=== PATIENT | female | born 1990 | race Caucasian/White ===

== ENCOUNTER → 2016-06-16 | Outpatient (CLI) | payer OTHER ==
[~2016-06-16] MED LIST: IBUP-232 PO
== END ==
LOC: HPND 08:00
PROVIDERS: ATTEND Obstetrics & Gynecology
DX: O99.212 Obesity complicating pregnancy, second trimester (principal); E66.01 Morbid (severe) obesity due to excess calories; Z68.41 Body mass index [BMI] 40.0-44.9, adult; O99.282 Endocrine, nutritional and metabolic diseases complicating pregnancy, second trimester; O99.512 Diseases of the respiratory system complicating pregnancy, second trimester; J45.20 Mild intermittent asthma, uncomplicated; O99.342 Other mental disorders complicating pregnancy, second trimester; Z3A.00 Weeks of gestation of pregnancy not specified
CPT/HCPCS: 76816; 76825; 76827; 93325

== ENCOUNTER → 2016-07-22 | Outpatient (CLI) | payer OTHER | LOC: HPND 14:29 | PROVIDERS: ATTEND Obstetrics & Gynecology | DX: O99.212 Obesity complicating pregnancy, second trimester (principal); O99.512 Diseases of the respiratory system complicating pregnancy, second trimester; O99.282 Endocrine, nutritional and metabolic diseases complicating pregnancy, second trimester; O99.342 Other mental disorders complicating pregnancy, second trimester; J45.40 Moderate persistent asthma, uncomplicated; Z68.41 Body mass index [BMI] 40.0-44.9, adult | CPT/HCPCS: 76816 ==

== ENCOUNTER 2016-09-18 08:50 | Inpatient (IN) | payer OTHER ==
[~2016-09-18] VITALS: Ht 170.2 cm; Wt 144.2 kg
[2016-09-18] VITALS (78 sets, daily range): BP systolic 83–157; BP diastolic 26–123; PULSE 58–168; RESP 17–20; TEMP 97.5–98.7
[2016-09-18] MEDS ORDERED: LACTATED RINGER'S 1000 ML INJ 1,000 ML IV PRN (09:43)
--- NOTE | 2016-09-18 09:43 | PD ---
HPI Chief Complaint Rupture membranes at 0300 Date Seen: Sep 18, 2016 Time Seen: 09:39 Travel History International Travel<30 Days: No Contact w/Intl Traveler<30Days: No Known Affected Area: No History of Present Illness HPI 26-year-old female who comes in today complaining of rupture membranes at approximately 3:00 this morning. She feels some cramping but no real contractions, no vaginal bleeding, good movement. Fluid was clear whenever it came out Para: 0 : 1 History Past Medical History Narrative Medical Hypothyroidism Asthma Anxiety Obstetric History Obstetric History None Past Surgical History Surgical History: No Previous Surgery Family History Family History: Negative Social History Alcohol Use: No Tobacco Use: No Substance Abuse: No Allergies-Medications (Allergen,Severity, Reaction): Coded Allergies: No Known Allergies (Unverified , 09/18/16) Narrative Medication Synthroid, Singulair, Advair, Zoloft, and vitamins Review of Systems Except as stated in HPI: all other systems reviewed are Neg Physical Exam Narrative GENERAL: Well-nourished, well-developed patient. SKIN: Warm and dry. HEAD: Normocephalic and atraumatic. EYES: No scleral icterus. No injection or drainage. ENT: No nasal drainage noted. Mucous membranes pink. Airway patent. NECK: Supple, trachea midline. No JVD. CARDIOVASCULAR: Regular rate and rhythm without murmurs, gallops, or rubs. RESPIRATORY: Breath sounds equal bilaterally. No accessory muscle use. BREASTS: Bilateral exam showed no masses , no retractions, no nipple discharge. ABDOMEN/GI: Abdomen soft, non-tender, bowel sounds present, no rebound, no guarding Gravid to [-] weeks size Fundal Height: [-40] GENITOURINARY: External Genitalia: intact and normal in appearance BUS glands: [-Normal] Cervix: [Mid position-] Dilatation: [-2 cm] Effacement: [-60] Station: [-2-] Presentation: [-Vertex] Membranes: Ruptured, clear fluid Uterine Contractions: [-Some irritability] FHT's: Category: [1-] Baseline: 140 Reactive: Moderate Variability: Moderate Decels: Absent EXTREMITIES: No cyanosis or edema. BACK: Nontender without obvious deformity. No CVA tenderness. NEUROLOGICAL: Awake and alert. Motor and sensory grossly within normal limits. Five out of 5 muscle strength in all muscle groups. Normal speech. Data Data Vital Signs Reviewed: Yes MDM Plan 38 weeks 1 day with spontaneous rupture membranes Hypothyroidism anxiety and asthma has been well controlled on present medication Admit for labor and possible need for augmentation was discussed with the patient Diagnosis Diagnosis: Primary Impression: 38 weeks gestation of Additional Impressions: Rupture of membranes with clear amniotic fluid Asthma Asthma affecting , antepartum Hypothyroidism Hypothyroidism affecting in third trimester Remedios Ribera MD Sep 18, 2016 09:43
[2016-09-18] MEDS ORDERED: SODIUM CHLORID 0.9% 500 ML INJ 500 ML IV PRN (09:45)
[2016-09-18] MEDS ORDERED: MINERAL OIL 10 ML VIAL TOPICAL PRN (09:45)
[2016-09-18] MEDS ORDERED: CITRIC ACID-SODIUM CITRATE LIQ 30 ML UDC PO SCH (09:45)
[2016-09-18] MEDS ORDERED: LIDOCAINE HCL 1% 50 ML VIAL INFIL PRN (09:45)
[2016-09-18] MEDS ORDERED: OXYTOCIN 30 UNITS-500ML PREMIX 500 ML IV SCH (09:45)
[2016-09-18] MEDS ORDERED: OXYTOCIN 30 UNITS-500ML PREMIX 500 ML IV ONE (09:45)
[2016-09-18] MEDS ORDERED: LIDOCAINE HCL 1% 50 ML VIAL I-DERMAL PRN (09:45)
[2016-09-18] MEDS ORDERED: SODIUM CHLOR 0.9% 1000 ML INJ 1,000 ML IV PRN (10:03)
[2016-09-18 10:23] LABS: AUTOMATED NEUTROPHIL # 9.1 TH/MM3 (1.8-7.7); BASOPHIL % 0.3 % (0.0-2.0); EOSINOPHIL # 0.3 TH/MM3 (0-0.4); EOSINOPHIL % 2.3 % (0.0-4.0); HEMATOCRIT 38.8 % (35.0-46.0); HEMO FLAGS DIFF FINAL; LYMPH % 14.5 % (9.0-44.0); LYMPHOCYTE # 1.7 TH/MM3 (1.0-4.8); MEAN CELL VOLUME 85.5 FL (80.0-100.0); MEAN CORPUSCULAR HEMOGLOBIN 29.1 PG (27.0-34.0); MONO % 5.6 % (0.0-8.0); NEUT % 77.3 % (16.0-70.0); PLATELET COUNT 278 TH/MM3 (150-450); RED BLOOD COUNT 4.54 MIL/MM3 (4.00-5.30); RED CELL DISTRIBUTION WIDTH 13.7 % (11.6-17.2); WHITE BLOOD COUNT 11.8 TH/MM3 (4.0-11.0)
[2016-09-18 10:31] LABS: BACTERIA, URINE OCC /hpf; BLOOD, URINE TRACE (NEG); GLUCOSE,URINE NEG (NEG); KETONE, URINE NEG (NEG); MUCUS URINE FEW /lpf (OCC); NITRITE,URINE NEG (NEG); SQUAMOUS EPITHELIAL CELL URINE 3 /hpf (0-5); URINE COLOR YELLOW (YELLW/STRAW)
[2016-09-18 10:32] LABS: COMMENT (UR) CULTURE INDICATED; CULTURE IF INDICATED CULTURE INDICATED
[2016-09-18] MEDS: LACTATED RINGER'S 1000 ML INJ 1,000 ML IV SCH ×2 (11:13→13:04)
[2016-09-18] MEDS ORDERED: fentaNYL 2MCG-BUPIV 0.125% INJ 100 ML ONE (15:58)
[2016-09-18] MEDS ORDERED: BUPIVACAINE HCL PF 0.25% 10 ML VIAL ONE (16:26)
[2016-09-18] MEDS ORDERED: ePHEDrine/NS 25 MG/5 ML SYR ONE (16:27)
[2016-09-18] MEDS ORDERED: fentaNYL 2MCG-BUPIV 0.125% 100 ML EPIDURAL SCH (18:00)
[2016-09-18] MEDS ORDERED: DO NOT ADMINISTER ANTICOAGULANTS PRN (18:00)
[2016-09-18] MEDS ORDERED: ePHEDrine/NS 25 MG/5 ML SYR IV PRN (18:00)
[2016-09-18] MEDS ORDERED: NO SYSTEM NARCOTICS PRN (18:00)
--- NOTE | 2016-09-18 20:56 | PD.OB.DELI ---
Delivery Date: Sep 18, 2016 Anesthesia: Epidural Episiotomy: None Vaginal Delivery: Normal Presentation: Occiput anterior Nuchal Cord: None Delayed cord clamping (45 sec): Yes Infant: Female One Minute : 8 Five Minute : 9 Weight: 3745g Placenta: Spontaneous delivery, Intact, 3 vessel cord Laceration: Vaginal laceration (and right labial) Repair: Chromic interrupted, Chromic running Additional Information ebl 300ml Zuleyma Vieyra MD Sep 18, 2016 20:55
[2016-09-18] MEDS ORDERED: ONDANSETRON ODT 4 MG TAB PO PRN (21:00)
[2016-09-18] MEDS ORDERED: MEASLES, MUMPS, RUBELLA VACCINE 0.5 ML VIAL SQ ONE (21:00)
[2016-09-18] MEDS ORDERED: SODIUM CHLORIDE 0.9% FLUSH 10 ML FLUSH IV FLUSH PRN (21:00)
[2016-09-18] MEDS ORDERED: BENZOCAINE 20% TOPICAL SPRAY 60 ML CAN TOPICAL PRN (21:00)
[2016-09-18] MEDS ORDERED: WITCH HAZEL 50%/GLYCERIN 12.5% 40 PAD JAR TOPICAL PRN (21:00)
[2016-09-18] MEDS ORDERED: DIPHTH/TETANUS/ACEL PERTUSSIS (BOOSTER) 0.5 ML VIAL/PFS IM ONE (21:00)
[2016-09-18] MEDS ORDERED: ZOLPIDEM TARTRATE 5 MG TAB PO PRN (21:00)
[2016-09-18] MEDS ORDERED: ACETAMINOPHEN 325 MG TAB PO PRN (21:00)
[2016-09-18] MEDS ORDERED: ALUMINUM/MAGNESIUM/SIMETH 30 ML CUP PO PRN (21:00)
[2016-09-18] MEDS ORDERED: SODIUM CHLORIDE 0.9% FLUSH 10 ML FLUSH IV FLUSH SCH (21:00)
[2016-09-19] MEDS: DOCUSATE SODIUM 50 MG/SENNA 8.6 MG TAB PO PRN ×2 (00:11→15:31)
[2016-09-19] MEDS: IBUPROFEN 600 MG TAB PO PRN ×4 (00:11→21:48)
[2016-09-19 09:00] VITALS: BP 105/69; PULSE 80; RESP 18; TEMP 98.1
--- NOTE | 2016-09-19 09:54 | HHI.OB ---
Subjective Post Day: 1 Remarks doing well, no complaints Objective Vitals/I&O Vital Signs Date Time Temp Pulse Resp B/P Pulse Ox O2 Delivery O2 Flow Rate FiO2 09/19/16 09:00 98.1 80 18 105/69 09/18/16 21:58 97.5 09/18/16 21:57 18 09/18/16 21:46 140 09/18/16 21:46 141/123 09/18/16 21:45 18 09/18/16 21:31 96 126/105 09/18/16 21:30 18 09/18/16 21:23 148 110/80 09/18/16 21:15 103 117/51 09/18/16 21:15 18 09/18/16 21:00 103 99/42 09/18/16 20:59 101 87/53 09/18/16 20:59 103 99/42 09/18/16 20:57 98.2 18 09/18/16 20:16 130 109/87 09/18/16 20:04 168 83/26 09/18/16 19:47 121/100 09/18/16 19:16 120 118/92 09/18/16 19:05 88 09/18/16 19:05 97.5 20 09/18/16 19:01 108 126/70 09/18/16 18:40 101 09/18/16 18:35 99 09/18/16 18:31 88 125/80 09/18/16 18:30 93 09/18/16 18:25 94 09/18/16 18:20 104 09/18/16 18:16 58 133/108 09/18/16 18:15 107 09/18/16 18:12 20 09/18/16 18:11 98.3 09/18/16 18:10 100 09/18/16 18:05 90 09/18/16 18:01 95 127/103 09/18/16 18:00 87 09/18/16 17:55 90 09/18/16 17:50 85 09/18/16 17:46 89 135/77 09/18/16 17:45 85 09/18/16 17:40 87 09/18/16 17:35 88 09/18/16 17:31 87 139/72 09/18/16 17:30 85 09/18/16 17:26 87 137/73 09/18/16 17:25 91 09/18/16 17:21 82 123/71 09/18/16 17:20 93 09/18/16 17:16 92 92/52 09/18/16 17:15 104 09/18/16 17:11 103 110/72 09/18/16 17:10 104 09/18/16 17:06 105 121/68 09/18/16 17:05 93 09/18/16 17:00 119 124/82 09/18/16 17:00 93 09/18/16 16:58 127 102/67 09/18/16 16:55 110 113/84 09/18/16 16:55 125 09/18/16 16:50 98 09/18/16 16:46 90 157/91 09/18/16 16:45 89 09/18/16 16:41 90 148/79 09/18/16 16:40 101 09/18/16 16:38 94 137/88 09/18/16 16:35 90 09/18/16 16:31 99 131/101 09/18/16 16:08 18 09/18/16 16:01 92 113/64 09/18/16 15:31 122 110/82 09/18/16 15:13 98.7 09/18/16 15:11 18 09/18/16 15:01 158 116/68 09/18/16 14:31 106 98/69 09/18/16 14:11 82 102/60 09/18/16 14:01 76 09/18/16 13:15 97.9 09/18/16 13:04 108 115/78 09/18/16 13:03 118 87/49 09/18/16 12:45 18 09/18/16 12:31 72 117/70 09/18/16 12:01 80 111/55 09/18/16 11:31 88 112/87 09/18/16 11:17 96 102/53 09/18/16 11:15 98.3 09/18/16 11:15 96 102/53 09/18/16 11:15 17 09/18/16 10:00 18 09/18/16 10:00 96 106/74 Objective Remarks GENERAL: Well-nourished, well-developed patient. CARDIOVASCULAR: Regular rate and rhythm without murmurs, gallops, or rubs. RESPIRATORY: Breath sounds equal bilaterally. No accessory muscle use. ABDOMEN/GI: Abdomen soft, non-tender. Fundus: Firm, non-tender at umbilicus. GENITOURINARY: Light to moderate bleeding. EXTREMITIES: No cyanosis , tr edema, non-tender, without signs of DVT. Medications and IVs Current Medications Medications (Trade) Dose Ordered Sig/Trevin Route Start Time Stop Time Status Last Admin (NS Flush) 2 ml BID IV FLUSH 09/18/16 21:00 (NS Flush) 2 ml UNSCH PRN IV FLUSH 09/18/16 21:00 (Tylenol) 650 mg Q4H PRN PO 09/18/16 21:00 (Motrin) 600 mg Q6H PRN PO 09/18/16 21:00 09/19/16 08:24 (Americaine 20% Top Spr) 1 spray Q4H PRN TOPICAL 09/18/16 21:00 09/19/16 00:11 (Tucks Pads) 1 applic QID PRN TOPICAL 09/18/16 21:00 09/19/16 00:11 (Roopa-Colace) 2 tab Q12H PRN PO 09/18/16 21:00 09/19/16 00:11 (Ambien) 5 mg HS PRN PO 09/18/16 21:00 (Mag-Al Plus Susp Liq) 15 ml Q8H PRN PO 09/18/16 21:00 (Zofran Odt) 4 mg Q6H PRN PO 09/18/16 21:00 Assessment/Plan Problem List: (1) Spontaneous vaginal delivery Assessment and Plan ppd 1 cont routine care dispo- home tomorrow Zuleyma Vieyra MD Sep 19, 2016 09:54
[2016-09-19] MEDS ORDERED: IBUP-232 PO (10:27)
--- NOTE | 2016-09-19 10:27 | HHI.DCPOC ---
Discharge Care Plan Diagnosis: (1) Spontaneous vaginal delivery Your Health Problems Are: Vaginal delivery Report Symptoms to Your Doctor -Temperate above 100.5 degrees -Redness, of incision or excessive or foul smelling drainage -Unusual pain or calf pain -Increased vaginal bleeding -Painful or difficulty urinating -Feelings of extreme sadness or anxiety after 2 weeks Goals to Promote Your Health * To prevent worsening of your condition and complications * To maintain your health at the optimal level Directions to Meet Your Goals Take your medications as prescribed Follow your dietary instruction Follow activity as directed Ensure plenty of rest for recovery Drink fluids for hydration Keep your appointments as scheduled Take your immunizations and boosters as scheduled If your symptoms worsen call your PCP, if no PCP go to Urgent Care Center or Emergency Room Smoking is Dangerous to Your Health. Avoid second hand smoke Call the 24-hour crisis hotline for domestic abuse at Zuleyma Vieyra MD Sep 19, 2016 10:27
[2016-09-19] MEDS: SERTRALINE HCL 100 MG TAB PO SCH ×2 (17:00→18:24)
[2016-09-19 21:00] VITALS: BP 135/70; PULSE 75; RESP 20; TEMP 98.2
[2016-09-20] MEDS: IBUPROFEN 600 MG TAB PO PRN (07:15)
[2016-09-20 08:02] VITALS: BP 135/83; PULSE 73; RESP 16; TEMP 98.5
[2016-09-20] MEDS: SERTRALINE HCL 100 MG TAB PO SCH (09:39)
--- NOTE | 2016-09-20 10:32 | HHI.OB ---
Subjective Post Day: 2 Remarks doing well, desires to go home Objective Vitals/I&O Vital Signs Date Time Temp Pulse Resp B/P Pulse Ox O2 Delivery O2 Flow Rate FiO2 09/20/16 08:02 98.5 73 16 09/20/16 08:02 135/83 09/19/16 21:00 98.2 75 20 135/70 Objective Remarks GENERAL: Well-nourished, well-developed patient. CARDIOVASCULAR: Regular rate and rhythm without murmurs, gallops, or rubs. RESPIRATORY: Breath sounds equal bilaterally. No accessory muscle use. ABDOMEN/GI: Abdomen soft, non-tender. Fundus: Firm, non-tender at umbilicus. GENITOURINARY: Light to moderate bleeding. EXTREMITIES: No cyanosis , tr edema, non-tender, without signs of DVT. Medications and IVs Current Medications Medications (Trade) Dose Ordered Sig/Trevin Route Start Time Stop Time Status Last Admin (NS Flush) 2 ml BID IV FLUSH 09/18/16 21:00 (NS Flush) 2 ml UNSCH PRN IV FLUSH 09/18/16 21:00 (Tylenol) 650 mg Q4H PRN PO 09/18/16 21:00 (Motrin) 600 mg Q6H PRN PO 09/18/16 21:00 09/20/16 07:15 (Americaine 20% Top Spr) 1 spray Q4H PRN TOPICAL 09/18/16 21:00 09/19/16 00:11 (Tucks Pads) 1 applic QID PRN TOPICAL 09/18/16 21:00 09/19/16 00:11 (Roopa-Colace) 2 tab Q12H PRN PO 09/18/16 21:00 09/19/16 15:31 (Ambien) 5 mg HS PRN PO 09/18/16 21:00 (Mag-Al Plus Susp Liq) 15 ml Q8H PRN PO 09/18/16 21:00 (Zofran Odt) 4 mg Q6H PRN PO 09/18/16 21:00 (Zoloft) 100 mg DAILY PO 09/19/16 17:00 09/20/16 09:39 Assessment/Plan Problem List: (1) Spontaneous vaginal delivery Assessment and Plan ppd 2 cont routine care dispo- home today Zuleyma Vieyra MD Sep 20, 2016 10:32
== END 2016-09-20 11:58 | disposition home or self-care (01) | DRG 775 ==
LOC: HOBED 08:50 → H2EA 10:00 → H1EA 22:50
PROVIDERS: ADMIT Obstetrics & Gynecology; ATTEND Obstetrics & Gynecology
PROC: 10E0XZZ Delivery of Products of Conception, External Approach (ICD-10-PCS; principal; 2016-09-18)
PROC: 0HQ9XZZ Repair Perineum Skin, External Approach (ICD-10-PCS; 2016-09-18)
DX: O99.284 Endocrine, nutritional and metabolic diseases complicating childbirth (principal); E03.9 Hypothyroidism, unspecified; Z37.0 Single live birth; Z3A.38 38 weeks gestation of pregnancy; O99.52 Diseases of the respiratory system complicating childbirth; J45.909 Unspecified asthma, uncomplicated; O70.0 First degree perineal laceration during delivery
CPT/HCPCS: 59025; 81001; 84112; 85025; 86900; 86901; 87086; 90707; 99285; J2590; J3010; J7120